=== PATIENT | male | born 1995 | race Caucasian/White ===

== ENCOUNTER 2017-06-17 22:42 | Observation (INO) | payer OTHER ==
[~2017-06-17] VITALS: Ht 175.3 cm; Wt 95.5 kg
[2017-06-17 23:16] VITALS: BP 148/85; PULSE 87; RESP 18; TEMP 99.7; O2SAT 100
--- NOTE | 2017-06-18 00:05 | RADRPT ---
EXAM DATE/TIME: 06/17/2017 23:36 [facility] COMPARISON: No previous studies available for comparison. INDICATIONS : Pt fell from skateboard- Pain to right forearm MEDICAL HISTORY : None. SURGICAL HISTORY : None. ENCOUNTER: Initial ACUITY: 1 day PAIN SCORE: 9/10 LOCATION: Right Forearm FINDINGS: There is an oblique fracture of the proximal shaft of the ulna with one half shaft width displacement and angulation. The proximal ulna also appears dislocated and rotated with respect to the distal hu merus. There is also a fracture of the proximal radius and the radial head is not well-seen on these 2 views, presumably dislocated. There is prominent soft tissue swelling about the proximal forearm. CONCLUSION: Fracture-dislocation of the proximal radius and ulna. Jovi Rosario MD on June 18, 2017 at 0:02 Board Certified Radiologist. This report was verified electronically.
--- NOTE | 2017-06-18 00:06 | RADRPT ---
EXAM DATE/TIME: 06/17/2017 23:37 [facility] COMPARISON: No previous studies available for comparison. INDICATIONS : Pt fell from skateboard- Pain to right forearm MEDICAL HISTORY : None. SURGICAL HISTORY : None. ENCOUNTER: Initial ACUITY: 1 day PAIN SCORE: 7/10 LOCATION: Right Wrist FINDINGS: Two view examination of the right wrist demonstrates no soft tissue swelling, dislocation, or fractur e. The joint spaces are maintained. Bony mineralization is normal. CONCLUSION: 1. No evidence of recent bone injury about the wrist. 2. Fracture-dislocation of the proximal radius and ulna. Jovi Rosario MD on June 18, 2017 at 0:04 Board Certified Radiologist. This report was verified electronically.
--- NOTE | 2017-06-18 00:08 | RADRPT ---
EXAM DATE/TIME: 06/17/2017 23:42 [facility] COMPARISON: No previous studies available for comparison. INDICATIONS : Pt fell from skateboard- Pain to right forearm MEDICAL HISTORY : None. SURGICAL HISTORY : None. ENCOUNTER: Initial ACUITY: 1 day PAIN SCORE: 9/10 LOCATION: Right Elbow FINDINGS: There are fractures of the proximal radius and ulna. The ulnar fracture is through the proximal shaf t, is oblique, and there is 1 cm separation and posterior displacement of the proximal fracture fragm ent. The olecranon is dislocated from the distal humerus. The radial fracture is through the metaph ysis and there is angulation and separation of the fracture line. The radial head is significantly d islocated from the capitellum. An ossific fragment measuring 1 cm is seen adjacent to the capitellum . Significant soft tissue swelling. CONCLUSION: Proximal radial and ulnar fractures with significant dislocation. Jovi Rosario MD on June 18, 2017 at 0:05 Board Certified Radiologist. This report was verified electronically.
[2017-06-18] MEDS ORDERED: MORPHINE SULFATE 4 MG/ML INJ IV PUSH ONE (01:00)
[2017-06-18] MEDS ORDERED: ONDANSETRON HCL 4 MG/2 ML VIAL IV PUSH ONE (01:00)
--- NOTE | 2017-06-18 01:00 | PD ---
HPI Chief Complaint: Injury Time Seen by Provider: 23:55 Travel History International Travel<30 days: No Contact w/Intl Traveler<30days: No Traveled to known affect area: No History of Present Illness HPI Patient was on a skateboard and fell off and has severe swelling and pain to his right elbow patient has a x-ray done from triage that shows a fracture dislocation of both ulnar and radial head are fractured and dislocated call Dr. Farr who wants me to reduce it however I explained to him the patient is neurovascular intact and I feel that the patient needs to be splinted and OR hopefully early in the a.m. [facility] Past Medical History Medical History: Denies Significant Hx Tetanus Vaccination: < 5 Years Influenza Vaccination: No Past Surgical History Surgical History: No Previous Surgery Social History Alcohol Use: No (occaisonally) Tobacco Use: No Substance Use: No Allergies-Medications (Allergen,Severity, Reaction): Coded Allergies: No Known Drug Allergies (Verified Allergy, Unknown, 06/17/17) Reported Meds & Prescriptions Reported Meds & Active Scripts Active Percocet (Oxycodone-Acetaminophen) 5-325 mg Tab 1-2 Tab PO Q4H PRN Review of Systems Except as stated in HPI: all other systems reviewed are Neg Physical Exam Narrative GENERAL: appear to be in pain with slightest movement of arm R or hand R SKIN: Warm and dry. HEAD: Atraumatic. Normocephalic. EYES: Pupils equal and round. No scleral icterus. No injection or drainage. ENT: No nasal bleeding or discharge. Mucous membranes pink and moist. NECK: Trachea midline. No JVD. CARDIOVASCULAR: Regular rate and rhythm. RESPIRATORY: No accessory muscle use. Clear to auscultation. Breath sounds equal bilaterally. GASTROINTESTINAL: Abdomen soft, non-tender, nondistended. Hepatic and splenic margins not palpable. MUSCULOSKELETAL: Extremities Right forearm swollen and abrasion on extensor surface, pt radial pulse 2 + and sensation is in tact , neurovascular intact. has full sensation to touch. SPlint place to stablize and decrease pain untio OR in AM . NEUROLOGICAL: Awake and alert. No obvious cranial nerve deficits. Motor grossly within normal limits. Normal speech. PSYCHIATRIC: Appropriate mood and affect; insight and judgment normal. Data Data Last Documented VS Orders Orders Ice/Cold Pack (06/17/17 23:20) Forearm (2vws) (06/17/17 23:20) Elbow, Limited (Ap&Lat) (06/17/17 23:20) Wrist, Limited (Ap&Lat) (06/17/17 23:20) Morphine Inj (Morphine Inj) (06/18/17 01:00) Ondansetron Inj (Zofran Inj) (06/18/17 01:00) Complete Blood Count With Diff (06/18/17 00:58) Comprehensive Metabolic Panel (06/18/17 00:58) Prothrombin Time / Inr (Pt) (06/18/17 00:58) Splinting (06/18/17 ) Fiberglass Splint Elbow Adult (06/18/17 ) Ice Cuff (06/18/17 ) Sling Cradle Arm (06/18/17 ) Admit Order (Ed Use Only) (06/18/17 03:35) Labs Laboratory Tests Test 06/18/17 01:03 06/18/17 01:40 White Blood Count 17.7 TH/MM3 Red Blood Count 5.31 MIL/MM3 Hemoglobin 15.2 GM/DL Hematocrit 44.6 % Mean Corpuscular Volume 84.1 FL Mean Corpuscular Hemoglobin 28.7 PG Mean Corpuscular Hemoglobin Concent 34.2 % Red Cell Distribution Width 12.8 % Platelet Count 237 TH/MM3 Mean Platelet Volume 8.8 FL Neutrophils (%) (Auto) 83.2 % Lymphocytes (%) (Auto) 9.5 % Monocytes (%) (Auto) 6.2 % Eosinophils (%) (Auto) 0.7 % Basophils (%) (Auto) 0.4 % Neutrophils # (Auto) 14.7 TH/MM3 Lymphocytes # (Auto) 1.7 TH/MM3 Monocytes # (Auto) 1.1 TH/MM3 Eosinophils # (Auto) 0.1 TH/MM3 Basophils # (Auto) 0.1 TH/MM3 CBC Comment DIFF FINAL Differential Comment Blood Urea Nitrogen 23 MG/DL Creatinine 1.28 MG/DL Random Glucose 110 MG/DL Total Protein 7.4 GM/DL Albumin 4.2 GM/DL Calcium Level 9.2 MG/DL Alkaline Phosphatase 68 U/L Aspartate Amino Transf (AST/SGOT) 27 U/L Alanine Aminotransferase (ALT/SGPT) 25 U/L Total Bilirubin 0.1 MG/DL Sodium Level 140 MEQ/L Potassium Level 3.9 MEQ/L Chloride Level 105 MEQ/L Carbon Dioxide Level 25.0 MEQ/L Anion Gap 10 MEQ/L Estimat Glomerular Filtration Rate 70 ML/MIN Prothrombin Time 10.4 SEC Prothromb Time International Ratio 1.0 RATIO MDM Medical Decision Making Medical Screen Exam Complete: Yes Emergency Medical Condition: Yes Differential Diagnosis pt fracture dislocation ulnar and radius with preservation of his neurovascular intact. Narrative Course I called Ortho operations support specialist Dr Farr to inform of the fracdture dislocation of ulnar and radius , and complete separation of ulnar and my hesitancy to reduce due to risk of vascular injury. I placed in slpint to decrease motion and pain . sensation and circulation intact . Dr Farr aware of shaft fractures and dislocation , I felt reduction technique could harm vessels that at this point were intact. I splint and gave pain meds and made pt NPO for OR this day Diagnosis Primary Impression: Ulnar fracture Additional Impressions: Radius/ulna fracture Elbow dislocation Admitting Information Admitting Physician Requests: Admit Scripts Sennosides-Docusate Sodium (Gnp Senna Plus 8.6-50 mg) 8.6 Mg-50 Mg Tab 1 TAB PO BID for Prevent Constipation, #20 TAB Prov: Baron Edwards MD 06/19/17 Oxycodone-Acetaminophen (Percocet) 5-325 mg Tab 1-2 TAB PO Q4H Y for PAIN, #90 TAB 0 Refills Prov: Mushtaq Farr MD 06/18/17 Bladimir Phillips MD Jun 18, 2017 01:00
[2017-06-18 01:17] LABS: AUTOMATED NEUTROPHIL # 14.7 TH/MM3 (1.8-7.7); BASOPHIL # 0.1 TH/MM3 (0-0.2); BASOPHIL % 0.4 % (0.0-2.0); EOSINOPHIL # 0.1 TH/MM3 (0-0.4); EOSINOPHIL % 0.7 % (0.0-4.0); HEMATOCRIT 44.6 % (39.0-51.0); HEMOGLOBIN 15.2 GM/DL (13.0-17.0); LYMPH % 9.5 % (9.0-44.0); LYMPHOCYTE # 1.7 TH/MM3 (1.0-4.8); MEAN CELL VOLUME 84.1 FL (80.0-100.0); MEAN CORPUSCULAR HEMOGLOBIN 28.7 PG (27.0-34.0); MEAN CORPUSCULAR HGB CONC 34.2 % (32.0-36.0); MEAN PLATELET VOLUME 8.8 FL (7.0-11.0); MONO % 6.2 % (0.0-8.0); MONOCYTE # 1.1 TH/MM3 (0-0.9); NEUT % 83.2 % (16.0-70.0); PLATELET COUNT 237 TH/MM3 (150-450); RED BLOOD COUNT 5.31 MIL/MM3 (4.50-5.90); RED CELL DISTRIBUTION WIDTH 12.8 % (11.6-17.2); WHITE BLOOD COUNT 17.7 TH/MM3 (4.0-11.0)
[2017-06-18 01:33] LABS: ALBUMIN 4.2 GM/DL (3.4-5.0); AST (GOT) 27 U/L (15-37); BLOOD UREA NITROGEN 23 MG/DL (7-18); CALCIUM 9.2 MG/DL (8.5-10.1); CHLORIDE 105 MEQ/L (98-107); CREATININE 1.28 MG/DL (0.60-1.30); GLOMERULAR FILTRATION RATE 70 ML/MIN (>89); GLUCOSE,RANDOM 110 MG/DL (74-106); SODIUM (NA) 140 MEQ/L (136-145)
[2017-06-18 01:34] LABS: ALT (GPT) 25 U/L (12-78)
[2017-06-18 01:36] LABS: ALKALINE PHOSPHATASE 68 U/L (45-117); TOTAL BILIRUBIN ADULT 0.1 MG/DL (0.2-1.0); TOTAL PROTEIN 7.4 GM/DL (6.4-8.2)
[2017-06-18 02:12] LABS: PROTHROMBIN TIME - PATIENT 10.4 SEC (9.8-11.6)
[2017-06-18] MEDS ORDERED: D5-1/2 NS + KCL 20 MEQ INJ 1,000 ML IV SCH (03:39)
[2017-06-18] MEDS ORDERED: BISACODYL 10 MG SUPP RECTAL PRN (03:45)
[2017-06-18] MEDS ORDERED: LACTULOSE SYRUP 20 GM/30 ML CUP PO PRN (03:45)
[2017-06-18] MEDS ORDERED: ONDANSETRON HCL 4 MG/2 ML VIAL IVP PRN ×2 (03:45→15:45)
[2017-06-18] MEDS ORDERED: NALOXONE HCL 0.4 MG/ML AMP IV PUSH PRN (03:45)
[2017-06-18] MEDS ORDERED: SODIUM CHLORIDE 0.9% FLUSH 10 ML FLUSH IV FLUSH PRN (03:45)
[2017-06-18] MEDS ORDERED: MAGNESIUM HYDROXIDE SUSP 30 ML CUP PO PRN ×2 (03:45→15:45)
[2017-06-18] MEDS ORDERED: MORPHINE SULFATE 2 MG/ML INJ IM PRN (03:45)
[2017-06-18] MEDS ORDERED: ACETAMINOPHEN 325 MG TAB PO PRN (03:45)
[2017-06-18] MEDS ORDERED: SENNOSIDES 8.6 MG TAB PO PRN (03:45)
[2017-06-18 04:11] VITALS: BP 116/60; PULSE 76; RESP 16; O2SAT 98
[2017-06-18 05:00] VITALS: BP 135/69; PULSE 103; RESP 20; TEMP 99; O2SAT 94
[2017-06-18] MEDS: ACETAMINOPHEN/HYDROcodone 325 MG/5 MG TAB PO PRN ×2 (05:01→11:07)
--- NOTE | 2017-06-18 05:41 | HHI.HP ---
[facility] Primary [facility] Physician No Primary Care Physician Admission Diagnosis fracture dislocation Ulnar and radius Diagnoses: Chief Complaint: right elbow and wrist pain Travel History International Travel<30 Days: No Contact w/Intl Traveler <30 Da: No Traveled to Known Affected Are: No History of Present Illness 22 y/o male with no medical history presented to the ED after a fall off a skateboard. He states this was his first time skateboarding and fell. He states the pain is a 6/10, throbbing to his right arm, with no radiation or associated symptoms. He denies hitting his head or any LOC. Denies any chest pain, sob, fever or chills. Review of Systems Except as stated in HPI: all other systems reviewed are Neg Past Family Social History Past Medical History Patient denies any medical history Past Surgical History Patient denies any surgical history Reported Medications Reported Meds & Active Scripts Active No Active Prescriptions or Reported Medications Allergies: Coded Allergies: No Known Drug Allergies (Verified Allergy, Unknown, 06/17/17) Active Ordered Medications Current Medications Medications (Trade) Dose Ordered Sig/Deonte Route Start Time Stop Time Status Last Admin Potassium Chloride/Dextrose/ Sod Cl 1,000 ml @ 75 mls/hr [id number] IV 06/18/17 03:39 06/18/17 16:58 06/18/17 04:13 (NS Flush) 2 ml UNSCH PRN IV FLUSH 06/18/17 03:45 (NS Flush) 2 ml BID IV FLUSH 06/18/17 09:00 (Tylenol) 650 mg Q4H PRN PO 06/18/17 03:45 (Zofran Inj) 4 mg Q6H PRN IVP 06/18/17 03:45 (Narcan Inj) 0.4 mg UNSCH PRN IV PUSH 06/18/17 03:45 (Milk Of Magnesia Liq) 30 ml Q12H PRN PO 06/18/17 03:45 (Senokot) 17.2 mg Q12H PRN PO 06/18/17 03:45 (Dulcolax Supp) 10 mg DAILY PRN RECTAL 3/2/18 03:45 (Lactulose Liq) 30 ml DAILY PRN PO 06/18/17 03:45 ([place] 5-325 Mg) 1 tab Q6H PRN PO 06/18/17 03:45 06/18/17 05:01 (Morphine Inj) 2 mg Q4H PRN IM 06/18/17 03:45 Family History Patient does not know his medical history Social History Patient denies any tobacco, alcohol or illicit drug use. Physical Exam Vital Signs Vital Signs Date Time Temp Pulse Resp B/P (MAP) Pulse Ox O2 Delivery O2 Flow Rate FiO2 06/18/17 05:00 99.0 103 20 135/69 (91) 94 06/18/17 04:11 76 16 116/60 (78) 98 Room Air 06/17/17 23:16 99.7 87 18 148/85 (106) 100 Physical Exam GENERAL: This is a well-nourished, well-developed patient, in no apparent distress. SKIN: No rashes, ecchymoses or lesions. Cool and dry. HEAD: Atraumatic. EYES: Pupils equal round and reactive. ENT: Nose without bleeding, purulent drainage or septal hematoma. Airway patent. NECK: Trachea midline. No JVD or lymphadenopathy. CARDIOVASCULAR: Regular rate and rhythm without murmurs, gallops, or rubs. RESPIRATORY: Clear to auscultation. Breath sounds equal bilaterally. No wheezes , rales, or rhonchi. GASTROINTESTINAL: Abdomen soft, non-tender, nondistended. MUSCULOSKELETAL: Extremities without clubbing, cyanosis, or edema. Right elbow tenderness. Limited ROM with right arm. No calf tenderness. NEUROLOGICAL: Awake and alert. Motor and sensory grossly within normal limits. Normal speech. Laboratory Laboratory Tests Test 06/18/17 01:03 06/18/17 01:40 White Blood Count 17.7 Red Blood Count 5.31 Hemoglobin 15.2 Hematocrit 44.6 Mean Corpuscular Volume 84.1 Mean Corpuscular Hemoglobin 28.7 Mean Corpuscular Hemoglobin Concent 34.2 Red Cell Distribution Width 12.8 Platelet Count 237 Mean Platelet Volume 8.8 Neutrophils (%) (Auto) 83.2 Lymphocytes (%) (Auto) 9.5 Monocytes (%) (Auto) 6.2 Eosinophils (%) (Auto) 0.7 Basophils (%) (Auto) 0.4 Neutrophils # (Auto) 14.7 Lymphocytes # (Auto) 1.7 Monocytes # (Auto) 1.1 Eosinophils # (Auto) 0.1 Basophils # (Auto) 0.1 CBC Comment DIFF FINAL Differential Comment Blood Urea Nitrogen 23 Creatinine 1.28 Random Glucose 110 Total Protein 7.4 Albumin 4.2 Calcium Level 9.2 Alkaline Phosphatase 68 Aspartate Amino Transf (AST/SGOT) 27 Alanine Aminotransferase (ALT/SGPT) 25 Total Bilirubin 0.1 Sodium Level 140 Potassium Level 3.9 Chloride Level 105 Carbon Dioxide Level 25.0 Anion Gap 10 Estimat Glomerular Filtration Rate 70 Prothrombin Time 10.4 Prothromb Time International Ratio 1.0 Result Diagram: 06/18/1710206/18/17102 Imaging Last Impressions Wrist X-Ray 06/17/172319 Signed Impressions: Service Date/Time: June 23:37 - CONCLUSION: 1. No evidence of recent bone injury about the wrist. 2. Fracture-dislocation of the proximal radius and ulna. Jovi Rosario MD Radius/Ulna X-Ray 06/17/172319 Signed Impressions: Service Date/Time: June 23:36 - CONCLUSION: Fracture-dislocation of the proximal radius and ulna. Jovi Rosario MD Elbow X-Ray 06/17/172319 Signed Impressions: Service Date/Time: June 23:42 - CONCLUSION: Proximal radial and ulnar fractures with significant dislocation. Jovi Rosario MD Caprini VTE Risk Assessment Caprini VTE Risk Assessment: No/Low Risk (score <= 1) Caprini Risk Assessment Model Point Value = 1 Point Value = 2 Point Value = 3 Point Value = 5 Age 41-60 Minor surgery BMI > 25 kg/m2 Swollen legs Varicose veins or History of unexplained or recurrent spontaneous Oral contraceptives or hormone replacement Sepsis (< 1 month) Serious lung disease, including pneumonia (< 1 month) Abnormal pulmonary function Acute myocardial infarction Congestive heart failure (< 1 month) History of inflammatory bowel disease Medical patient at bed rest Age 61-74 Arthroscopic surgery Major open surgery (> 45 min) Laparoscopic surgery (> 45 min) Malignancy Confined to bed (> 72 hours) Immobilizing plaster cast Central venous access Age >= 75 History of VTE Family history of VTE Factor V Leiden Prothrombin [id number] Lupus anticoagulant Anticardiolipin antibodies Elevated serum homocysteine Heparin-induced thrombocytopenia Other congenital or acquired thrombophilia Stroke (< 1 month) Elective arthroplasty Hip, pelvis, or leg fracture Acute spinal cord injury (< 1 month) Prophylaxis Regimen Total Risk Factor Score Risk Level Prophylaxis Regimen 0-1 Low Early ambulation 2 Moderate Order ONE of the following: *Sequential Compression Device (SCD) *Heparin 5000 units SQ BID 3-4 Higher Order ONE of the following medications: *Heparin 5000 units SQ TID *Enoxaparin/Lovenox 40 mg SQ daily (WT < 150 kg, CrCl > 30 mL/min) *Enoxaparin/Lovenox 30 mg SQ daily (WT < 150 kg, CrCl > 10-29 mL/min) *Enoxaparin/Lovenox 30 mg SQ BID (WT < 150 kg, CrCl > 30 mL/min) AND/OR *Sequential Compression Device (SCD) 5 or more Highest Order ONE of the following medications: *Heparin 5000 units SQ TID (Preferred with Epidurals) *Enoxaparin/Lovenox 40 mg SQ daily (WT < 150 kg, CrCl > 30 mL/min) *Enoxaparin/Lovenox 30 mg SQ daily (WT < 150 kg, CrCl > 10-29 mL/min) *Enoxaparin/Lovenox 30 mg SQ BID (WT < 150 kg, CrCl > 30 mL/min) AND *Sequential Compression Device (SCD) Assessment and Plan Problem List: (1) Elbow dislocation ICD Code: S53.106A - Unspecified dislocation of unspecified ulnohumeral joint, initial encounter Status: Acute (2) Radius/ulna fracture ICD Code: S52.90XA - Unspecified fracture of unspecified forearm, initial encounter for closed fracture; S52.209A - Unspecified fracture of shaft of unspecified ulna, initial encounter for closed fracture Status: Acute Assessment and Plan 22 y/o male with no medical history presented to the ED after a fall off a skateboard. Elbow dislocation with radius/ ulna fracture Elbow x ray reviewed and shows a proximal radial and ulnar fracture with significant dislocation -Consult orthopedics -Pain management with [place] and morphine IV -NPO -IVF for hydration DVT prophylaxis: SCDs Discussed Condition With Patient, RN and ED physician Physician Certification 2 Midnight Certification Type: Admission for Inpatient Services Order for Inpatient Services The services are ordered in accordance with Medicare regulations or non- Medicare payer requirements, as applicable. In the case of services not specified as inpatient-only, they are appropriately provided as inpatient services in accordance with the 2-midnight benchmark. Estimated LOS (days): 2 days is the estimated time the patient will need to remain in the hospital, assuming treatment plan goals are met and no additional complications. Post-Hospital Plan: Home Problem Qualifiers (1) Elbow dislocation: Qualified Codes: S53.104A - Unspecified dislocation of right ulnohumeral joint , initial encounter (2) Radius/ulna fracture: Qualified Codes: S52.91XA - Unspecified fracture of right forearm, initial encounter for closed fracture; S52.201A - Unspecified fracture of shaft of right ulna, initial encounter for closed fracture Ciara Patiño Jun 18, 2017 05:41
[2017-06-18] MEDS ORDERED: MORPHINE SULFATE 2 MG/ML INJ IV PUSH PRN (07:45)
[2017-06-18 07:51] VITALS: BP 135/88; PULSE 94; RESP 20; TEMP 98.4; O2SAT 95
[2017-06-18] MEDS: SODIUM CHLORIDE 0.9% FLUSH 10 ML FLUSH IV FLUSH SCH ×2 (08:16→20:45)
--- NOTE | 2017-06-18 11:19 | HHI.PR ---
Subjective Remarks 22 y/o male with no medical history presented to the ED after a fall off a skateboard. He states this was his first time skateboarding and fell. He states the pain is a 6/10, throbbing to his right arm, with no radiation or associated symptoms. He denies hitting his head or any LOC. Denies any chest pain, sob, fever or chills. 3-2 AWAIT ORTHO EVALUATIONS HOPEFULLY FOR SURGERY OF RIGHT FOREARM TODAY KEEP NPO PAIN CONTROL AM LABS Objective Vitals Vital Signs Date Time Temp Pulse Resp B/P (MAP) Pulse Ox O2 Delivery O2 Flow Rate FiO2 06/18/17 07:51 98.4 94 20 135/88 (104) 95 06/18/17 05:00 99.0 103 20 135/69 (91) 94 06/18/17 04:11 76 16 116/60 (78) 98 Room Air 06/17/17 23:16 99.7 87 18 148/85 (106) 100 Result Diagram: 06/18/17 0103 06/18/17 0103 Other Results Laboratory Tests Test 06/18/17 01:03 06/18/17 01:40 White Blood Count 17.7 TH/MM3 Red Blood Count 5.31 MIL/MM3 Hemoglobin 15.2 GM/DL Hematocrit 44.6 % Mean Corpuscular Volume 84.1 FL Mean Corpuscular Hemoglobin 28.7 PG Mean Corpuscular Hemoglobin Concent 34.2 % Red Cell Distribution Width 12.8 % Platelet Count 237 TH/MM3 Mean Platelet Volume 8.8 FL Neutrophils (%) (Auto) 83.2 % Lymphocytes (%) (Auto) 9.5 % Monocytes (%) (Auto) 6.2 % Eosinophils (%) (Auto) 0.7 % Basophils (%) (Auto) 0.4 % Neutrophils # (Auto) 14.7 TH/MM3 Lymphocytes # (Auto) 1.7 TH/MM3 Monocytes # (Auto) 1.1 TH/MM3 Eosinophils # (Auto) 0.1 TH/MM3 Basophils # (Auto) 0.1 TH/MM3 CBC Comment DIFF FINAL Differential Comment Blood Urea Nitrogen 23 MG/DL Creatinine 1.28 MG/DL Random Glucose 110 MG/DL Total Protein 7.4 GM/DL Albumin 4.2 GM/DL Calcium Level 9.2 MG/DL Alkaline Phosphatase 68 U/L Aspartate Amino Transf (AST/SGOT) 27 U/L Alanine Aminotransferase (ALT/SGPT) 25 U/L Total Bilirubin 0.1 MG/DL Sodium Level 140 MEQ/L Potassium Level 3.9 MEQ/L Chloride Level 105 MEQ/L Carbon Dioxide Level 25.0 MEQ/L Anion Gap 10 MEQ/L Estimat Glomerular Filtration Rate 70 ML/MIN Prothrombin Time 10.4 SEC Prothromb Time International Ratio 1.0 RATIO Imaging Last Impressions Wrist X-Ray 06/17/172319 Signed Impressions: Service Date/Time: June 23:37 - CONCLUSION: 1. No evidence of recent bone injury about the wrist. 2. Fracture-dislocation of the proximal radius and ulna. Jovi Rosario MD Radius/Ulna X-Ray 06/17/172319 Signed Impressions: Service Date/Time: June 23:36 - CONCLUSION: Fracture-dislocation of the proximal radius and ulna. Jovi Rosario MD Elbow X-Ray 06/17/172319 Signed Impressions: Service Date/Time: June 23:42 - CONCLUSION: Proximal radial and ulnar fractures with significant dislocation. Jovi Rosario MD Objective Remarks GENERAL: This is a well-nourished, well-developed patient, in no apparent distress. SKIN: No rashes, ecchymoses or lesions. Cool and dry. HEAD: Atraumatic. EYES: Pupils equal round and reactive. ENT: Nose without bleeding, purulent drainage or septal hematoma. Airway patent. NECK: Trachea midline. No JVD or lymphadenopathy. CARDIOVASCULAR: Regular rate and rhythm without murmurs, gallops, or rubs. RESPIRATORY: Clear to auscultation. Breath sounds equal bilaterally. No wheezes , rales, or rhonchi. GASTROINTESTINAL: Abdomen soft, non-tender, nondistended. MUSCULOSKELETAL: Extremities without clubbing, cyanosis, or edema. Right elbow tenderness. Limited ROM with right arm. No calf tenderness. Right arm dressed with splint and Mino wrap NEUROLOGICAL: Awake and alert. Motor and sensory grossly within normal limits. Normal speech. Insight and judgment is good; mood and behavior is appropriate Medications and IVs Current Medications Morphine Sulfate (Morphine Inj) 4 mg ONCE ONCE IV PUSH Last administered on 06/18/17at 01:01; Start 06/18/17 at 01:00; Stop 06/18/17 at 01:01; Status DC Ondansetron HCl (Zofran Inj) 4 mg ONCE ONCE IV PUSH Last administered on at 01:01; Start 06/18/17 at 01:00; Stop 06/18/17 at 01:01; Status DC Potassium Chloride/Dextrose/ Sod Cl 1,000 ml @ 75 mls/hr [id number] IV Last administered on 06/18/17at 04:13; Start 06/18/17 at 03:39; Stop 06/18/17 at 16:58 Sodium Chloride (NS Flush) 2 ml UNSCH PRN IV FLUSH FLUSH AFTER USING IV ACCESS ; Start 06/18/17 at 03:45 Sodium Chloride (NS Flush) 2 ml BID IV FLUSH ; Start 06/18/17 at 09:00 Acetaminophen (Tylenol) 650 mg Q4H PRN PO TEMP > 100.4; Start 06/18/17 at 03:45 Ondansetron HCl (Zofran Inj) 4 mg Q6H PRN IVP NAUSEA OR VOMITING; Start at 03:45 Naloxone HCl (Narcan Inj) 0.4 mg UNSCH PRN IV PUSH SEE LABEL COMMENTS; Start at 03:45 Magnesium Hydroxide (Milk Of Magnesia Liq) 30 ml Q12H PRN PO Mild constipation ; Start 06/18/17 at 03:45 Sennosides (Senokot) 17.2 mg Q12H PRN PO Moderate constipation; Start 06/18/17 at 03:45 Bisacodyl (Dulcolax Supp) 10 mg DAILY PRN RECTAL SEVERE CONSITIPATION/ IF NPO ; Start 06/18/17 at 03:45 Lactulose (Lactulose Liq) 30 ml DAILY PRN PO SEVERE CONSITIPATION/ IF PO; Start 06/18/17 at 03:45 Acetaminophen/ Hydrocodone Bitart ([place] 5-325 Mg) 1 tab Q6H PRN PO PAIN GREATER THAN 5 Last administered on 06/18/17at 05:01; Start 06/18/17 at 03:45 Morphine Sulfate (Morphine Inj) 2 mg Q4H PRN IM BREAKTHROUGH PAIN; Start at 03:45; Stop 06/18/17 at 07:42; Status DC Morphine Sulfate (Morphine Inj) 2 mg Q4H PRN IV PUSH BREAKTHROUGH PAIN Last administered on 06/18/17at 08:11; Start 06/18/17 at 07:45 A/P Problem List: (1) Elbow dislocation ICD Code: S53.106A - Unspecified dislocation of unspecified ulnohumeral joint, initial encounter Status: Acute (2) Radius/ulna fracture ICD Code: S52.90XA - Unspecified fracture of unspecified forearm, initial encounter for closed fracture; S52.209A - Unspecified fracture of shaft of unspecified ulna, initial encounter for closed fracture Status: Acute Assessment and Plan Assessment and Plan 22 y/o male with no medical history presented to the ED after a fall off a skateboard. Elbow dislocation with radius/ ulna fracture Elbow x ray reviewed and shows a proximal radial and ulnar fracture with significant dislocation- REMAINS IN SPLINT -Consult orthopedics -Pain management with [place] and morphine IV -NPO -IVF for hydration DVT prophylaxis: SCDs HOPEFULLY FOR SURGERY TODAY Discharge Planning PENDING SURGERY BY ORTHO Problem Qualifiers (1) Elbow dislocation: Qualified Codes: S53.104A - Unspecified dislocation of right ulnohumeral joint , initial encounter (2) Radius/ulna fracture: Qualified Codes: S52.91XA - Unspecified fracture of right forearm, initial encounter for closed fracture; S52.201A - Unspecified fracture of shaft of right ulna, initial encounter for closed fracture Bolivar Gibbs DO Jun 18, 2017 11:18
[2017-06-18 11:41] VITALS: BP 135/83; PULSE 75; RESP 20; TEMP 97.8; O2SAT 99
[2017-06-18] MEDS ORDERED: LIDOCAINE HCL 1% PF 5 ML SYRINGE OTHER ONE (12:00)
[2017-06-18] MEDS ORDERED: LACTATED RINGER'S 1000 ML INJ 1,000 ML IV ONE (12:00)
[2017-06-18] MEDS ORDERED: DEXAMETHASONE SOD PHOS 4 MG/ML VIAL IV ONE (12:00)
[2017-06-18] MEDS ORDERED: PROPOFOL 200 MG/20 ML AMP IV ONE (12:00)
[2017-06-18] MEDS ORDERED: ceFAZolin INJ 1,000 MG VIAL IV ONE (12:00)
[2017-06-18] MEDS ORDERED: ONDANSETRON HCL 4 MG/2 ML VIAL IV ONE (12:00)
[2017-06-18] MEDS ORDERED: MIDAZOLAM HCL 2 MG/2 ML VIAL ONE (14:17)
[2017-06-18] MEDS ORDERED: HYDROmorphone HCL PF 2 MG/ML VIAL ONE (14:17)
[2017-06-18] MEDS ORDERED: LACTATED RINGER'S 1000 ML IV PRN (14:45)
[2017-06-18] MEDS ORDERED: CHLORHEXIDINE GLUCONATE 2 % 1 PACK (2 CLOTHS) TOPICAL PRN (14:45)
[2017-06-18] MEDS ORDERED: POVIDONE IODINE 5% (ANTISEPSIS KIT) 4 APPLICATIONS EACH NARE PRN (14:45)
[2017-06-18] MEDS ORDERED: SODIUM CHLORID 0.9% 500 ML IV PRN (14:45)
[2017-06-18] MEDS ORDERED: METOPROLOL TARTRATE 25 MG TAB PO PRN (14:45)
[2017-06-18] MEDS ORDERED: ACETAMINOPHEN 1000 MG/100 ML 100 ML IV ONE (14:46)
[2017-06-18] MEDS ORDERED: oxyCODONE/ACETAMINOPHEN 5 MG/325 MG TAB PO PRN (15:45)
[2017-06-18] MEDS ORDERED: MORPHINE SULFATE 4 MG/ML INJ IV PUSH PRN (15:45)
[2017-06-18] MEDS ORDERED: PERC5TAB12 PO (15:45)
[2017-06-18] MEDS ORDERED: MISCELLANEOUS PHARMACY INFORMATION XX ONE (15:45)
[2017-06-18] MEDS ORDERED: diphenhydrAMINE HCL 25 MG CAP PO PRN (15:45)
[2017-06-18] MEDS ORDERED: MISCELLANEOUS NURSING INFORMATION XX PRN (15:45)
[2017-06-18] MEDS ORDERED: Post-op Orders (for Pharmacy) XX ONE (15:45)
[2017-06-18] MEDS ORDERED: GENTAMICIN SULFATE 80 MG/2 ML VIAL ONE (18:11)
[2017-06-18] MEDS ORDERED: DO NOT ADM ANY ANTICOAGULANT DRUGS PRN (19:04)
--- NOTE | 2017-06-18 19:13 | RADRPT ---
EXAM DATE/TIME: 06/18/2017 18:32 [facility] COMPARISON: ELBOW RIGHT LIMITED (AP & LAT), June 17, 2017, 23:42. INDICATIONS : Open reduction, internal fixation of right elbow. MEDICAL HISTORY : None. SURGICAL HISTORY : None. ENCOUNTER: Initial ACUITY: 1 day PAIN SCORE: Non-responsive. LOCATION: Right elbow. FINDINGS: The patient is status post ORIF of proximal radial and ulnar fractures. Hardware appears to be adequa te in position. CONCLUSION: Status post ORIF of proximal radial and ulnar fractures with hardware adequate in position. Garland Leslie MD on June 18, 2017 at 19:11 Board Certified Radiologist. This report was verified electronically.
[2017-06-18] MEDS: DEXT 5%-NACL 0.45% 1000 ML INJ 1,000 ML IV SCH ×2 (19:30→22:50)
--- NOTE | 2017-06-18 19:57 | MB ---
cc: Mushtaq Farr MD DATE OF CONSULT: 06/18/2017 REASON FOR CONSULTATION: Right elbow fracture dislocation. HISTORY OF PRESENT ILLNESS: This patient is a 22-year-old male who fell off a skateboard yesterday, sustained severe traumatic injury to the right upper extremity, complained of significant pain in regards to the right elbow with swelling and associated deformity. No numbness, tingling. No radiation, no referred symptoms. He denies hitting his head, denies loss of consciousness. He went to [facility] Emergency Room. X-rays confirmed evidence of a right elbow fracture dislocation. He has admitted to the medical service. Orthopedic surgery consulted for further evaluation and management of his injury and condition. PAST MEDICAL HISTORY: Negative. PAST SURGICAL HISTORY: Negative. MEDICATIONS: He takes no medications. ALLERGIES: NO KNOWN DRUG ALLERGIES. FAMILY HISTORY: Reviewed and noncontributory. SOCIAL HISTORY: Denies tobacco, alcohol or drug use. REVIEW OF SYSTEMS: Negative for 10 systems other than in HPI. PHYSICAL EXAMINATION: VITAL SIGNS: Temperature 99, pulse 87, respiration 18, blood pressure 140/80. GENERAL: The patient is a well nourished male, awake, alert, lying in bed, no acute distress. HEENT: Normocephalic, atraumatic. Pupils equal, round and reactive to light. Extraocular muscle intact. NECK: Supple. LUNGS: Clear. HEART: Regular rate and rhythm. ABDOMEN: Soft, nontender. SKIN: Shows no rashes. NEUROLOGIC: Exam is nonfocal. LABORATORY STUDIES: White blood cell count is 17, hematocrit is 44, glucose 110, creatinine 1.28. IMAGING STUDIES: X-rays of the right elbow shows fractures of the radial head, as well as the proximal ulna and olecranon with displacement and there appears to be a dislocation at the elbow. There may also be a fracture in the region of the coronoid process. IMPRESSION: A 22-year-old male status post fall off skateboard injury to right elbow fracture dislocation involving radius and ulna. PLAN: I discussed the diagnosis and treatment options. We spoke about the option of nonoperative treatment versus surgery. Surgery would consist of an open reduction and internal fixation, possible external fixation. Risks and benefits were discussed in detail. Risks of surgery discussed which include but not limited to anesthesia, bleeding, infection, damage to nerves and blood vessels, pain, stiffness, failure of hardware, blood clots. The patient has asked appropriate questions, these have been answered and he does wish to proceed with surgery in favor of the benefits over the risks. Written consent has been obtained. The surgical site has been marked. MD JJ Morgan/SIS , 03:44 PM , 07:57 PM
[2017-06-18] MEDS: oxyCODONE/ACETAMINOPHEN 5 MG/325 MG TAB PO PRN (20:44)
[2017-06-18] MEDS: DOCUSATE SODIUM 50 MG/SENNA 8.6 MG TAB PO SCH (20:45)
[2017-06-18 21:29] VITALS: BP 137/94; PULSE 78; RESP 18; TEMP 97.5; O2SAT 97
--- NOTE | 2017-06-18 22:31 | MP ---
cc: Mushtaq Farr MD, Jeffrey W MD DATE OF OPERATION: 06/18/2017 PREOPERATIVE DIAGNOSIS: Right ulna fracture, right radial head fracture, right elbow dislocation POSTOPERATIVE DIAGNOSIS: Right ulna fracture, right radial head fracture, right elbow dislocation PROCEDURE: Open reduction, internal fixation of right proximal ulna fracture, open reduction, internal fixation of radial head fracture, open reduction of elbow dislocation, application of long-arm splint. SURGEON: Mushtaq Farr MD DEV TECHNICAL MGR: JAYCE Ding ANESTHESIA: General. ESTIMATED BLOOD LOSS: 100 mL TOURNIQUET TIME: Zero minutes. COMPLICATIONS: None. IMPLANTS USED: Synthes. JUSTIFICATION: This patient is a 22-year-old male who fell sustaining a severe injury to his right elbow resulting in the above-named injury as listed above. He presented to [facility] emergency room. X-rays confirmed the above-named findings. Orthopedic surgery was consulted. The patient was counseled as to risks, benefits and alternatives of the above-named proposed surgical procedure. He did wish to proceed with surgery. PROCEDURE IN DETAIL: Written consent was obtained. The patient was identified by name, taken to the operating room and placed supine on the operating room table. General anesthesia was administered as well as 2 grams of IV Ancef and 1 gram of IV vancomycin. The patient was carefully turned to a left lateral decubitus position. A lateral arm roll was placed. All bony prominences and pressure points were well padded. The patient's neck was carefully monitored and kept neutral. The right upper extremity was prepped and draped using isopropyl alcohol, Hibiclens solution and ChloraPrep solution. After a timeout was performed, a longitudinal incision was made over the posterior aspect of the right elbow in line with the olecranon process and the ulna. The fascial layer was incised and carried down to the level of the bone. The periosteal elevator was used to elevate the soft tissue and periosteum off the olecranon as well as the ulna shaft. Open reduction was performed of the ulna shaft proximal third fracture using a fracture reduction tenaculum clamp. Subsequently, a Synthes stainless steel long olecranon and ulnar plate was applied. A combination of both locking and non-locking screws was used for fixation. Fluoroscopic imaging confirmed hardware placement and fracture reduction. The surgical wound was thoroughly irrigated with sterile saline solution. With the olecranon and ulna fracture reduced and plated and stabilized, I was still not able to reduce the elbow joint and the radial head and neck fracture was completely rotated and unreducible by closed means. At this point, the surgical incision over the ulna was closed with a combination of #1 Vicryl suture, 2-0 Vicryl suture and maynor. At this point, a separate incision was made over the lateral aspect of the radial head. The fascial layer was incised and there appeared to be a complete disruption of the capsule as related to the fracture. The radial head fragment was completely displaced 100% and rotated 90 degrees. The wound was irrigated with sterile saline solution and a fracture reduction tenaculum was used to assist with open reduction of the radial head. Once the radial head was reduced anatomically, I then performed an open reduction of the elbow joint itself. At this point, a Synthes radial head stainless steel plate was applied to the radial head and a combination of both locking and nonlocking screws were used for fixation. Fluoroscopic imaging again confirmed hardware placement as well as fracture and joint reduction. With the arm held at full extension, there appeared to be anatomic reduction and good stability. Flexion of the elbow started to lever the joint and cause some instability. At this point, it was determined we would splint the elbow in extension, as this was the position of most stability and provided the patient with anatomic reduction of both the elbow joint and fractures. At this point, after a successful open reduction the fascial layer was closed with #1 Vicryl suture, subcutaneous layer with 2-0 Vicryl suture. Skin incision was closed with maynor. Sterile dressing was applied. The patient was placed in a lock arm well-padded splint in extension. He tolerated the procedure well with no intraoperative complications noted. Rasta Bundy, physician assistant front office manager certified, was present during the entire procedure to include patient position and the procedure itself. The medical necessity of a physician assistant front office manager was indicated in this case due to the complexity of the procedure itself. He assisted with appropriate manipulation of the arm as well as retraction of muscles, tendon, bone and neurovascular structures. He assisted with both achieving and maintaining fracture reduction along with implantation of the internal fixation device. MD JJ Morgan//mavis , 06:56 PM , 10:15 PM
[2017-06-19] VITALS: BP 134/85; PULSE 79; RESP 18; TEMP 98.8; O2SAT 96
[2017-06-19] MEDS: oxyCODONE/ACETAMINOPHEN 5 MG/325 MG TAB PO PRN ×5 (00:51→14:51)
[2017-06-19 03:15] VITALS: BP 138/71; PULSE 81; RESP 18; TEMP 98.9; O2SAT 96
[2017-06-19 07:06] LABS: AUTOMATED NEUTROPHIL # 11.4 TH/MM3 (1.8-7.7); BASOPHIL % 0.2 % (0.0-2.0); HEMATOCRIT 40.3 % (39.0-51.0); LYMPH % 7.2 % (9.0-44.0); MEAN CELL VOLUME 84.1 FL (80.0-100.0); MEAN CORPUSCULAR HEMOGLOBIN 29.1 PG (27.0-34.0); MEAN CORPUSCULAR HGB CONC 34.6 % (32.0-36.0); MEAN PLATELET VOLUME 8.8 FL (7.0-11.0); MONO % 9.4 % (0.0-8.0); MONOCYTE # 1.3 TH/MM3 (0-0.9); NEUT % 83.2 % (16.0-70.0); PLATELET COUNT 212 TH/MM3 (150-450); RED BLOOD COUNT 4.79 MIL/MM3 (4.50-5.90); RED CELL DISTRIBUTION WIDTH 12.6 % (11.6-17.2); WHITE BLOOD COUNT 13.7 TH/MM3 (4.0-11.0)
[2017-06-19 07:26] VITALS: BP 127/68; PULSE 70; RESP 18; TEMP 100; O2SAT 95
[2017-06-19 07:37] LABS: ALBUMIN 3.5 GM/DL (3.4-5.0); ALT (GPT) 17 U/L (12-78); AST (GOT) 21 U/L (15-37); BICARBONATE 25.9 MEQ/L (21.0-32.0); BLOOD UREA NITROGEN 11 MG/DL (7-18); CALCIUM 8.6 MG/DL (8.5-10.1); CHLORIDE 104 MEQ/L (98-107); CREATININE 1.21 MG/DL (0.60-1.30); GLOMERULAR FILTRATION RATE 74 ML/MIN (>89); GLUCOSE,RANDOM 163 MG/DL (74-106); MAGNESIUM 2.2 MG/DL (1.5-2.5); PHOSPHORUS 1.8 MG/DL (2.5-4.9); SODIUM (NA) 138 MEQ/L (136-145)
[2017-06-19] MEDS: DOCUSATE SODIUM 50 MG/SENNA 8.6 MG TAB PO SCH (07:49)
[2017-06-19] MEDS: SODIUM CHLORIDE 0.9% FLUSH 10 ML FLUSH IV FLUSH SCH (07:54)
[2017-06-19 07:55] LABS: TOTAL PROTEIN 6.7 GM/DL (6.4-8.2)
[2017-06-19 07:56] LABS: ALKALINE PHOSPHATASE 57 U/L (45-117); FREE T4 1.22 NG/DL (0.76-1.46); TOTAL BILIRUBIN ADULT 0.4 MG/DL (0.2-1.0)
[2017-06-19] MEDS ORDERED: MULTIVITAMINS/MINERALS THERAPEUTIC TAB PO SCH (09:00)
--- NOTE | 2017-06-19 09:40 | HHI.PR ---
Subjective Remarks Follow-up right Elbow fracture status post repair 06/19/17-patient seen and examined, complaining of some numbness to right fingers otherwise pain currently controlled. Afebrile Objective Vitals Vital Signs Date Time Temp Pulse Resp B/P (MAP) Pulse Ox O2 Delivery O2 Flow Rate FiO2 06/19/17 07:55 Room Air 06/19/17 07:26 100.0 70 18 127/68 (87) 95 06/19/17 03:15 98.9 81 18 138/71 (93) 96 06/19/17 00:00 98.8 79 18 134/85 (101) 96 06/18/17 21:29 97.5 78 18 137/94 (108) 97 06/18/17 20:42 97 Nasal Cannula 2.00 06/18/17 19:45 62 12 137/81 (99) 98 Nasal Cannula 2 06/18/17 19:30 67 12 143/94 (110) 96 Nasal Cannula 2 06/18/17 19:15 59 12 135/80 (98) 98 Nasal Cannula 3 06/18/17 19:02 98.4 64 12 121/68 (85) 96 Nasal Cannula 3 06/18/17 11:41 97.8 75 20 135/83 (100) 99 I/O 06/18/17 06/18/17 06/18/17 06/19/17 06/19/17 06/19/17 07:00 15:00 23:00 07:00 15:00 23:00 Intake Total 1000 ml 1580 ml 100 ml Output Total 100 ml Balance 900 ml 1580 ml 100 ml Intake Oral 480 ml IV Total 1100 ml 100 ml Other 1000 ml Output Estimated Blood Loss 100 ml # Voids 2 # Bowel Movements 0 Result Diagram: 06/19/17 0545 06/19/17 0545 Imaging Last Impressions Elbow X-Ray 06/18/17 0000 Signed Impressions: Service Date/Time: Sunday, June 18, 2017 18:32 - CONCLUSION: Status post ORIF of proximal radial and ulnar fractures with hardware adequate in position. Garland Leslie MD Wrist X-Ray 06/17/17 9250 Signed Impressions: Service Date/Time: June 23:37 - CONCLUSION: 1. No evidence of recent bone injury about the wrist. 2. Fracture-dislocation of the proximal radius and ulna. Jovi Rosario MD Radius/Ulna X-Ray 06/17/17 2242 Signed Impressions: Service Date/Time: June 23:36 - CONCLUSION: Fracture-dislocation of the proximal radius and ulna. Jovi Rosario MD Objective Remarks GENERAL: NAD SKIN: Warm and dry. HEAD: Normocephalic. EYES: No scleral icterus. No injection or drainage. NECK: Supple, trachea midline. No JVD or lymphadenopathy. CARDIOVASCULAR: Regular rate and rhythm without murmurs, gallops, or rubs. RESPIRATORY: Breath sounds equal bilaterally. No accessory muscle use. GASTROINTESTINAL: Abdomen soft, non-tender, nondistended. MUSCULOSKELETAL: No cyanosis, or edema. RUE in splint-neurovascular BACK: Nontender without obvious deformity. No CVA tenderness. Procedures s/p Open reduction, internal fixation of right proximal ulna fracture, open reduction, internal fixation of radial head fracture, open reduction of elbow dislocation, application of long-arm splint. A/P Problem List: (1) Elbow dislocation ICD Code: S53.106A - Unspecified dislocation of unspecified ulnohumeral joint, initial encounter Status: Acute (2) Radius/ulna fracture ICD Code: S52.90XA - Unspecified fracture of unspecified forearm, initial encounter for closed fracture; S52.209A - Unspecified fracture of shaft of unspecified ulna, initial encounter for closed fracture Status: Acute Assessment and Plan 22 y/o male with Elbow dislocation with radius/ ulna fracture Elbow x ray reviewed and shows a proximal radial and ulnar fracture with significant dislocation- REMAINS IN SPLINT -s/p Open reduction, internal fixation of right proximal ulna fracture, open reduction, internal fixation of radial head fracture, open reduction of elbow dislocation, application of long-arm splint. -Pain management with [place] and morphine IV -management per Orthopedic surgery DVT prophylaxis: SCDs Discharge Planning Discharge patient to home Condition on discharge: Improved Regular Diet as tolerated Ad Paulina activity Rx written:see EMR Follow-up with primary care physician in 1 week Follow up with Orthopedic surgery Problem Qualifiers (1) Elbow dislocation: Qualified Codes: S53.104A - Unspecified dislocation of right ulnohumeral joint , initial encounter (2) Radius/ulna fracture: Qualified Codes: S52.91XA - Unspecified fracture of right forearm, initial encounter for closed fracture; S52.201A - Unspecified fracture of shaft of right ulna, initial encounter for closed fracture Baron Edwards MD Jun 19, 2017 09:40
[2017-06-19] MEDS ORDERED: PERI PO (09:44)
[2017-06-19] MEDS: DEXT 5%-NACL 0.45% 1000 ML INJ 1,000 ML IV SCH (09:57)
[2017-06-19 11:02] VITALS: BP 134/67; PULSE 59; RESP 16; TEMP 99.9; O2SAT 99
[2017-06-19 12:10] LABS: HEMOGLOBIN A1C 5.3 % (4.3-6.0)
[2017-06-19 15:54] VITALS: BP 128/65; PULSE 70; RESP 16; TEMP 99; O2SAT 98
== END 2017-06-19 16:51 | disposition home or self-care (01) ==
LOC: NEPC 22:42 → NEDA 06-18 03:38 → INTOOBSV 06-18 03:38 → NEPGCP 06-18 04:33 → N06B 06-18 13:17 → N06A 06-18 19:55
PROVIDERS: ADMIT Hospitalist; ATTEND Hospitalist
DX: S52.121A Displaced fracture of head of right radius, initial encounter for closed fracture (principal); S52.201A Unspecified fracture of shaft of right ulna, initial encounter for closed fracture; S53.104A Unspecified dislocation of right ulnohumeral joint, initial encounter; V00.131A Fall from skateboard, initial encounter; Y93.51 Activity, roller skating (inline) and skateboarding
CPT/HCPCS: 01740; 01830; 24615; 25575; 29105; 73070; 73090; 73100; 76000; 80053; 83036; 83735; 84100; 84439; 84443; 85025; 85610; 94150; 96365; 96366; 96375; 97161; 99285; C1713; G0378; J0131; J0690; J1100; J1170; J1580; J2250; J2270; J2405; J3010; J3480; J7120

== ENCOUNTER 2017-06-26 11:23 | Emergency (ER) | payer OTHER ==
[~2017-06-26] VITALS: Ht 175.3 cm; Wt 97.0 kg
[~2017-06-26 11:23] MED LIST: PERC5TAB12 PO; PERI PO
[2017-06-26 11:34] VITALS: BP 128/58; PULSE 79; RESP 18; TEMP 98.2; O2SAT 98
--- NOTE | 2017-06-26 16:45 | PD ---
HPI Chief Complaint: Injury Time Seen by Provider: 15:51 Travel History International Travel<30 days: No Contact w/Intl Traveler<30days: No Traveled to known affect area: No History of Present Illness HPI 22-year-old male presents emergency department status post fall from skateboard on June 18, 2017, with subsequent open reduction and fixation to the right radius and ulna as well as elbow reduction from dislocation. This was performed by Dr. Farr, on June 19. Patient comes in today with increased swelling to the hand and fingers with ecchymosis noted, but more concerning is some numbness to the left thumb. Patient states some of the padding of the upper cast was loose yesterday and he removed some of it and rewrapped it with his Mino bandage yesterday. Since that time he has had increased swelling and numbness as described. He denies fever, chills, or other symptoms. He has a follow-up with Dr. Farr next week. This is the original cast was placed after the surgical procedure. Patient has been taking Percocet for pain. Patient is able to make a fist and pinch. He has no known drug allergies. PFSH Past Medical History Diabetes: No Psychiatric: No Social History Alcohol Use: No (occaisonally) Tobacco Use: No Substance Use: No Allergies-Medications (Allergen,Severity, Reaction): Coded Allergies: No Known Drug Allergies (Verified Allergy, Unknown, 06/26/17) Reported Meds & Prescriptions Reported Meds & Active Scripts Active Gnp Senna Plus 8.6-50 mg (Sennosides-Docusate Sodium) 8.6 Mg-50 Mg Tab 1 Tab PO BID Percocet (Oxycodone-Acetaminophen) 5-325 mg Tab 1-2 Tab PO Q4H PRN Review of Systems Except as stated in HPI: all other systems reviewed are Neg General / Constitutional: No: Fever Eyes: No: Visual changes HENT: No: Headaches Cardiovascular: No: Chest Pain or Discomfort Respiratory: No: Shortness of Breath Gastrointestinal: No: Abdominal Pain Genitourinary: No: Dysuria Musculoskeletal: Positive: Arthralgias, Limited ROM, Edema, Pain Skin: No Rash Neurologic: Positive: Paresthesia, No: Weakness Psychiatric: No: Depression Endocrine: No: Polydipsia Hematologic/Lymphatic: No: Easy Bruising Physical Exam Narrative GENERAL: Patient appears in no acute distress per SKIN: Warm and dry. Normal color. Normal turgor. Patient does have some dependent appearing ecchymosis to the palm of the hand and fingers consistent with history. The right distal hand is somewhat swollen and mildly cool to the touch. No erythema or increased warmth noted. Capillary rebound is present. Possibly somewhat slowed. HEAD: Atraumatic. Normocephalic. EYES: Pupils equal and round. No scleral icterus. No injection or drainage. ENT: No nasal bleeding or discharge. Mucous membranes pink and moist. Pharynx is clear. Airway is patent. NECK: Trachea midline. No JVD. CARDIOVASCULAR: Regular rate and rhythm. RESPIRATORY: No accessory muscle use. Clear to auscultation. Breath sounds equal bilaterally. GASTROINTESTINAL: Abdomen soft, non-tender, nondistended. Hepatic and splenic margins not palpable. MUSCULOSKELETAL: Extremities without clubbing, cyanosis, or edema. No obvious deformities. NEUROLOGICAL: Awake and alert. No obvious cranial nerve deficits. Motor grossly within normal limits. Five out of 5 muscle strength in the arms and legs. Normal speech. PSYCHIATRIC: Appropriate mood and affect; insight and judgment normal. Data Data Last Documented VS Vital Signs Date Time Temp Pulse Resp B/P (MAP) Pulse Ox O2 Delivery O2 Flow Rate FiO2 06/26/17 11:34 98.2 79 18 128/58 (81) 98 Orders Orders Splinting (06/26/17 ) [facility] Medical Decision Making Medical Screen Exam Complete: Yes Emergency Medical Condition: Yes Medical Record Reviewed: Yes Differential Diagnosis Status post fall from skateboard. Ulnar radial fracture and elbow dislocation noted. Question neurovascular entrapment secondary to cast Narrative Course Patient is medically stable at time of exam. Ortho techs are called to evaluate the patient's cast and replace if necessary. Patient to try to ice the area frequently as discussed as well as elevated as much as possible. Patient to follow-up with Dr. Farr's office as scheduled. Patient can return if symptoms worsen as needed. Diagnosis Primary Impression: Cast discomfort Additional Impression: Cast in place on extremity Referrals: Mushtaq Farr MD Patient Instructions: General Instructions Additional Instructions: Patient is medically stable at time of exam. Ortho techs are called to evaluate the patient's cast and replace if necessary. Patient to try to ice the area frequently as discussed as well as elevated as much as possible. Patient to follow-up with Dr. Farr's office as scheduled. Patient can return if symptoms worsen as needed. Med/Other Pt SpecificInfo: No Change to Meds Disposition: 01 DISCHARGE HOME Condition: Stable Jonah Chavez Jun 26, 2017 16:45
== END 2017-06-26 18:25 | disposition home or self-care (01) ==
LOC: NEPD 11:23
DX: Z47.89 Encounter for other orthopedic aftercare (principal); S52.91XD Unspecified fracture of right forearm, subsequent encounter for closed fracture with routine healing; S52.602D Unspecified fracture of lower end of left ulna, subsequent encounter for closed fracture with routine healing; V00.131D Fall from skateboard, subsequent encounter
CPT/HCPCS: 99281